=== PATIENT | female | born 1955 | race Caucasian/White ===

== ENCOUNTER 2016-07-12 13:43 | Outpatient (CLI) | payer OTHER | END 2016-07-12 13:44 | disposition home or self-care (01) | DX: D72.819 Decreased white blood cell count, unspecified (principal) ==

== ENCOUNTER 2016-08-09 09:29 | Outpatient (CLI) | payer OTHER | END 2016-08-09 09:30 | disposition home or self-care (01) | DX: Z12.31 Encounter for screening mammogram for malignant neoplasm of breast (principal); Z80.3 Family history of malignant neoplasm of breast ==

== ENCOUNTER 2017-07-07 08:00 | Outpatient (CLI) | payer OTHER ==
[2017-07-07 13:32] LABS: EOSINOPHILS # (AUTO) 0.1 10^3/uL (0.0-0.7); EOSINOPHILS % (AUTO) 4.1 %; HGB - HEMOGLOBIN 13.1 g/dL (12.0-16.0); LYMPHOCYTES # (AUTO) 1.4 10^3/uL (1.5-3.5); LYMPHOCYTES % (AUTO) 47.4 %; MEAN CORPUSCULAR HEMOGLOBIN 29.9 pg (27.0-31.0); MEAN CORPUSCULAR HGB CONC 33.8 g/dL (32.0-36.0); MEAN CORPUSCULAR VOLUME 88.3 fL (81.0-99.0); MEAN PLATELET VOLUME 8.8 fL (7.9-10.8); MONOCYTES # (AUTO) 0.4 10^3/uL (0.0-1.0); MONOCYTES % (AUTO) 13.1 %; NEUTROPHILS % (AUTO) 34.4 %; PLT - PLATELET COUNT 237 10^3/uL (130-450); RED BLOOD COUNT 4.37 10^6/uL (4.20-5.40); RED CELL DISTRIBUTION WIDTH 13.1 % (12.0-15.0); WHITE BLOOD COUNT 2.9 x10^3/uL (4.8-10.8)
[2017-07-07 13:41] LABS: ALBUMIN 4.4 g/dL (3.2-5.5); ALBUMIN/GLOBULIN RATIO 1.5 (1.0-2.2); BILIRUBIN,TOTAL 0.6 mg/dL (0.2-1.0); CALCIUM 8.9 mg/dL (8.5-10.3); CREATININE 0.8 mg/dL (0.4-1.0); TOTAL PROTEIN 7.3 g/dL (6.7-8.2)
== END 2017-07-07 08:01 | disposition home or self-care (01) ==
LOC: LAB.R 08:00
PROVIDERS: ATTEND Nurse Practitioner Primary Care
DX: Z00.00 Encounter for general adult medical examination without abnormal findings (principal); D72.819 Decreased white blood cell count, unspecified
CPT/HCPCS: 80053; 85025

== ENCOUNTER 2017-07-12 14:48 | Outpatient (CLI) | payer OTHER ==
--- NOTE | 2017-07-12 21:01 | XRAY Report ---
DATE OF SERVICE: 07/12/2017 TWO VIEW RIGHT THUMB: 07/12/2017 CLINICAL INDICATION: Pain. Frontal and lateral views of the right thumb demonstrate mild degenerative changes. There is no evidence of acute fracture or dislocation. No radiopaque foreign body is seen in the soft tissues. IMPRESSION: Mild osteoarthritis. No evidence of acute fracture. TD: 07/12/2017 21:57
== END 2017-07-12 14:49 | disposition home or self-care (01) ==
LOC: DI 14:48
PROVIDERS: ATTEND Nurse Practitioner Primary Care
DX: M19.041 Primary osteoarthritis, right hand (principal)
CPT/HCPCS: 73140

== ENCOUNTER 2018-04-24 09:28 | Outpatient (CLI) | payer MEDICARE, OTHER ==
--- NOTE | 2018-04-24 15:24 | Ultrasound Report ---
Reason: LIPOMA Procedure Date: 04/24/2018 Accession Number: [id number] / [id number] Procedure: US - Abdomen Limited CPT Code: FULL RESULT: EXAM: ABDOMEN ULTRASOUND LIMITED, RUQ EXAM DATE: 04/24/2018 10:09 AM. CLINICAL HISTORY: Lipoma. COMPARISON: None. TECHNIQUE: Real-time scanning was performed with static images obtained. FINDINGS: Focal grayscale and limited color Doppler ultrasound of the area of interest along the right abdominal wall was performed. A 0.7 x 0.3 x 1.2 cm ovoid superficial echogenic structure with echogenicity similar to the dermal layer is identified. The structure appears to respect tissue planes and is wider than tall with discrete well-demarcated borders. There is no surrounding hyperemia. Color Doppler reveals a singular feeding vessel. IMPRESSION: Benign-appearing nonspecific ovoid mass. Given echogenicity, the differential diagnosis would include entities such as a lymph node or lipoma. Given that the imaging appearance is nonspecific, other etiologies are not excluded. RADIA
== END 2018-04-24 09:29 | disposition home or self-care (01) ==
LOC: DI 09:28
PROVIDERS: ATTEND Internal Medicine
DX: D17.9 Benign lipomatous neoplasm, unspecified (principal); R19.00 Intra-abdominal and pelvic swelling, mass and lump, unspecified site
CPT/HCPCS: 76705

== ENCOUNTER 2018-07-13 08:00 | Outpatient (CLI) | payer MEDICARE, OTHER ==
[2018-07-13 14:58] LABS: BASOPHILS % (AUTO) 0.3 %; EOSINOPHILS # (AUTO) 0.1 10^3/uL (0.0-0.7); EOSINOPHILS % (AUTO) 4.3 %; HGB - HEMOGLOBIN 13.4 g/dL (12.0-16.0); LYMPHOCYTES # (AUTO) 1.3 10^3/uL (1.5-3.5); LYMPHOCYTES % (AUTO) 44.2 %; MEAN CORPUSCULAR HEMOGLOBIN 30.3 pg (27.0-31.0); MEAN CORPUSCULAR HGB CONC 33.9 g/dL (32.0-36.0); MEAN CORPUSCULAR VOLUME 89.3 fL (81.0-99.0); MEAN PLATELET VOLUME 8.6 fL (7.9-10.8); MONOCYTES # (AUTO) 0.4 10^3/uL (0.0-1.0); MONOCYTES % (AUTO) 12.6 %; NEUTROPHILS # (AUTO) 1.2 10^3/uL (1.5-6.6); NEUTROPHILS % (AUTO) 38.6 %; PLT - PLATELET COUNT 235 10^3/uL (130-450); RED BLOOD COUNT 4.41 10^6/uL (4.20-5.40); RED CELL DISTRIBUTION WIDTH 13.3 % (12.0-15.0)
[2018-07-13 15:08] LABS: ALBUMIN 4.1 g/dL (3.2-5.5); ALBUMIN/GLOBULIN RATIO 1.2 (1.0-2.2); BILIRUBIN,TOTAL 0.8 mg/dL (0.2-1.0); CALCIUM 9.1 mg/dL (8.5-10.3); CREATININE 0.8 mg/dL (0.4-1.0); TOTAL PROTEIN 7.5 g/dL (6.7-8.2)
[2018-07-14 11:12] LABS: HEPATITIS C ANTIBODY NON-REACTIVE (NON-REACTIVE)
== END 2018-07-13 23:59 | disposition home or self-care (01) ==
LOC: LAB.R 08:00
PROVIDERS: ATTEND Internal Medicine
DX: D72.819 Decreased white blood cell count, unspecified (principal); Z00.00 Encounter for general adult medical examination without abnormal findings
CPT/HCPCS: 80053; 85025; 86803

== ENCOUNTER 2018-08-04 09:22 | Outpatient (CLI) | payer MEDICARE, OTHER | END 2018-08-04 09:23 | disposition home or self-care (01) | LOC: DI 09:22 | PROVIDERS: ATTEND Internal Medicine | DX: R06.09 Other forms of dyspnea (principal); I42.9 Cardiomyopathy, unspecified; I34.0 Nonrheumatic mitral (valve) insufficiency | CPT/HCPCS: 93016; 93017; 93018; 93306; 93350; 93351 ==

== ENCOUNTER 2018-08-11 12:34 | Outpatient (CLI) | payer MEDICARE, OTHER ==
--- NOTE | 2018-08-04 11:34 | CARDIAC PROCEDURE NOTE ---
DATE OF SERVICE: 08/04/2018 Physician: Ronda Zaragoza MD, [facility] INDICATIONS: Dyspnea on exertion, Left bundle branch block. CARDIAC RISK FACTORS: Postmenopausal status, unknown/possible hypertension history. PROCEDURE: After signing informed consent, the patient underwent a Jones- protocol treadmill stress test along with Echo imaging at rest and at peak heart rate. Resting heart rate: 74. Peak heart rate: 156 (100% predicted maximum heart rate for age). Slow recovery of heart rate after exercise. Resting blood pressure: 146/80. Peak blood pressure: 170/85 and BP breanne further in early recovery to 200/80, then had normal recovery slowly. The patient exercised for 2 min and 48 seconds on a Jones-protocol treadmill stress test, She achieved a peak HR of 156 (100% PMHR) and 4.5 METS. Patient had no chest pain or shortness of breath. Oxygen saturation was 98% at peak on room air. RESTING EKG: Normal sinus rhythm, left atrial enlargement and right atrial enlargement, left bundle branch block. EKG AT [facility]: ST segments cannot be commented on because of the presence of left bundle branch block. SUMMARY: 1. Abnormal resting EKG. 2. Indeterminate ST and T waves by EKG criteria with exercise-stress because of the underlying left bundle branch block. 3. Abnormal heart rate and blood pressure response to exercise. 4. Echo images reported separately. 5. The preliminary Echo result shows LVH, severe global LV hypokinesis with severely depressed LVEF at rest. I spoke to Dr. Farias with all the above findings. The patient is to undergo a complete Echo with Doppler today, is to see Dr. Farias today after the Echo, and to start medications and management for cardiomyopathy. TD: 08/04/2018 11:14 MINOR
--- NOTE | 2018-08-11 13:47 | DEXA Report ---
Reason: POSTMENOPAUSAL Procedure Date: 08/11/2018 Accession Number: [id number] / [id number] Procedure: DEX - Dexa Spine and/or Hip CPT Code: FULL RESULT: EXAM: Dexa Spine and/or Hip DATE: 08/11/2018 1:04 PM CLINICAL HISTORY: POSTMENOPAUSAL. History of osteopenia. TECHNIQUE: Dual energy x-ray absorptiometry (DXA) was performed on a [employer] System. Regions measured are the AP Spine, femoral neck, and if needed forearm. COMPARISON: 07/27/2012 In accordance with the International Society for Clinical Densitometry (ISCD) guidelines, data from previous exams may be reanalyzed using current recommendations and techniques. This is done to allow a more accurate basis for comparison with the current study. FINDINGS: The data for the lumbar spine is as follows: BMD (g/cm/cm) T-SCORE Z-SCORE REGION L1 0.852 -2.3 -0.5 L2 0.919 -2.3 -0.5 L3 0.992 -1.7 0.1 L4 0.981 -1.8 0.0 TOTAL 0.941 -2.0 -0.2 NOTE: All evaluable vertebrae are used for classification The data for the hip is as follows: BMD (g/cm/cm) T-SCORE Z-SCORE REGION Neck 0.785 -1.8 -0.2 TOTAL 0.785 -1.8 -0.4 NOTE: The femoral neck or total proximal femur, whichever is lowest, is used for classification. IMPRESSION: THE WHO CLASSIFICATION BASED ON THE INTERNATIONAL REFERENCE STANDARD IS OSTEOPENIA. THE FRACTURE RISK IS INCREASED. RECOMMENDATION: Patients with diagnosis of osteoporosis or osteopenia should have regular bone mineral density assessment. For those eligible for Medicare, routine testing is allowed once every 2 years. Testing frequency can be increased for patients who have rapidly progressing disease or for those who are receiving medical therapy to restore bone mass. COMMENT: World Health Organization (WHO) definitions for osteoporosis and osteopenia: NORMAL BMD: T-score at -1.0 or higher, fracture risk is low OSTEOPENIA BMD: T-score between -1.0 and -2.5, fracture risk is increased. OSTEOPOROSIS BMD: T-score at -2.5 or lower, fracture risk is high. National Osteoporosis Foundation recommends: 1. Obtain adequate dietary calcium (at least 1200 mg per day) and vitamin D (400-800 international units per day). 2. Participate, as appropriate, in regular weightbearing and muscle-strengthening exercise. 3. Avoid tobacco use and reduce alcohol and caffeine intake. 4. For more detailed information see the website at www.NOF.org.
== END 2018-08-11 12:35 | disposition home or self-care (01) ==
LOC: DI 12:34
PROVIDERS: ATTEND Internal Medicine
DX: M85.89 Other specified disorders of bone density and structure, multiple sites (principal); Z78.0 Asymptomatic menopausal state
CPT/HCPCS: 77080

== ENCOUNTER 2018-08-11 12:35 | Outpatient (CLI) | payer MEDICARE, OTHER ==
--- NOTE | 2018-08-11 15:47 | Mammography Report ---
Reason: SCREENING MAMMO Procedure Date: 08/11/2018 Accession Number: [id number] / [id number] Procedure: NASIMA - Screening Mammo w/Malik CPT Code: FULL RESULT: EXAM: Screening Mammo w/Malik DATE: 08/11/2018 2:29 PM CLINICAL HISTORY: Patient with sister with breast cancer. History of breast biopsies. For routine screening TECHNIQUE: Bilateral CC and MLO views were obtained. COMPARISON: 08/09/2016, 12/10/2014, 10/18/2013 and 08/08/2012 FINDINGS: The breast tissue is extremely dense. No significant interval change. No suspicious masses, clustered microcalcifications, or new regions of architectural distortion are identified. Scattered benign-appearing calcifications and postsurgical change are stable. IMPRESSION: Benign findings RECOMMENDATION: Routine annual screening unless otherwise clinically indicated. BIRADS CATEGORY 2: Benign findings STANDARD QUALIFYING STATEMENTS: 1. This examination was not reviewed with the aid of Computer-Aided Detection (CAD). 2. A negative or benign imaging report should not preclude biopsy if clinically suspicious findings are present. 3. Dense breasts may obscure an underlying neoplasm. 4. This examination was reviewed with the aid of 3D breast imaging (tomosynthesis).
== END 2018-08-11 12:36 | disposition home or self-care (01) ==
LOC: DI 12:35
PROVIDERS: ATTEND Internal Medicine
DX: Z12.31 Encounter for screening mammogram for malignant neoplasm of breast (principal); Z78.0 Asymptomatic menopausal state
CPT/HCPCS: 77063; 77067

== ENCOUNTER 2018-08-17 11:25 | Outpatient (CLI) | payer MEDICARE, OTHER | END 2018-08-17 23:59 | disposition home or self-care (01) | LOC: LAB.R 11:25 | PROVIDERS: ATTEND Internal Medicine | DX: E55.9 Vitamin D deficiency, unspecified (principal) | CPT/HCPCS: 82306 ==

== ENCOUNTER 2018-09-21 08:41 | Outpatient (CLI) | payer MEDICARE, OTHER ==
[2018-09-21 09:02] LABS: CALCIUM 9.2 mg/dL (8.5-10.3); CREATININE 0.9 mg/dL (0.4-1.0)
== END 2018-09-21 08:42 | disposition home or self-care (01) ==
LOC: LAB 08:41
PROVIDERS: ATTEND Internal Medicine Cardiovascular Disease
DX: I50.9 Heart failure, unspecified (principal)
CPT/HCPCS: 36415; 80048

== ENCOUNTER 2018-11-22 12:55 | Outpatient (CLI) | payer MEDICARE, OTHER | END 2018-11-22 12:56 | disposition home or self-care (01) | LOC: DI 12:55 | PROVIDERS: ATTEND Internal Medicine Cardiovascular Disease | DX: I50.9 Heart failure, unspecified (principal); I35.1 Nonrheumatic aortic (valve) insufficiency | CPT/HCPCS: 93306 ==

== ENCOUNTER 2019-04-02 09:21 | Outpatient (CLI) | payer MEDICARE, OTHER ==
--- NOTE | 2019-04-03 14:53 | XRAY Report ---
Reason: TOE PAIN,LEFT Procedure Date: 04/02/2019 Accession Number: [id number] / [id number] Procedure: XR - Toe(s) LT CPT Code: FULL RESULT: EXAM: LEFT TOE RADIOGRAPHY EXAM DATE: 04/02/2019 09:36 AM. CLINICAL HISTORY: Toe pain, left. COMPARISON: None. TECHNIQUE: 3 views. FINDINGS: Bones: Osteopenia. No discrete fracture or periosteal reaction. Osseous fusion at the 3rd, 4th, and 5th distal interphalangeal joints, likely congenital. Joints: Alignment anatomic. Minimal degenerative changes. Soft Tissues: Mild soft tissue swelling at the 4th digit. IMPRESSION: 1. Osteopenia. 2. No evidence of acute or subacute fracture. 3. Mild soft tissue swelling. RADIA
== END 2019-04-02 09:22 | disposition home or self-care (01) ==
LOC: DI 09:21
PROVIDERS: ATTEND Nurse Practitioner
DX: M85.872 Other specified disorders of bone density and structure, left ankle and foot (principal); M19.072 Primary osteoarthritis, left ankle and foot; R22.42 Localized swelling, mass and lump, left lower limb
CPT/HCPCS: 73660

== ENCOUNTER 2019-07-25 16:20 | Outpatient (CLI) | payer MEDICARE, OTHER ==
[2019-07-25 16:44] LABS: BASOPHILS % (AUTO) 1.1 %; EOSINOPHILS # (AUTO) 0.2 10^3/uL (0.0-0.7); HGB - HEMOGLOBIN 12.3 g/dL (12.0-16.0); LYMPHOCYTES # (AUTO) 1.4 10^3/uL (1.5-3.5); LYMPHOCYTES % (AUTO) 36.4 %; MEAN CORPUSCULAR HEMOGLOBIN 30.9 pg (27.0-31.0); MEAN CORPUSCULAR HGB CONC 33.4 g/dL (32.0-36.0); MEAN CORPUSCULAR VOLUME 92.5 fL (81.0-99.0); MEAN PLATELET VOLUME 9.5 fL (7.9-10.8); MONOCYTES # (AUTO) 0.4 10^3/uL (0.0-1.0); MONOCYTES % (AUTO) 11.3 %; NEUTROPHILS # (AUTO) 1.8 10^3/uL (1.5-6.6); NEUTROPHILS % (AUTO) 46.9 %; PLT - PLATELET COUNT 259 10^3/uL (130-450); RED BLOOD COUNT 3.98 10^6/uL (4.20-5.40); WHITE BLOOD COUNT 3.8 x10^3/uL (4.8-10.8)
[2019-07-25 17:02] LABS: ALBUMIN 4.5 g/dL (3.2-5.5); ALBUMIN/GLOBULIN RATIO 1.4 (1.0-2.2); BILIRUBIN,TOTAL 0.5 mg/dL (0.2-1.0); CALCIUM 9.2 mg/dL (8.5-10.3); CREATININE 0.9 mg/dL (0.4-1.0); TOTAL PROTEIN 7.7 g/dL (6.7-8.2)
[2019-07-25 17:32] LABS: THYROID STIMULATING HORMONE 3.52 uIU/mL (0.34-5.60)
[2019-07-25 17:34] LABS: FREE T4 (FREE THYROXINE) 0.77 ng/dL (0.58-1.64)
== END 2019-07-25 16:21 | disposition home or self-care (01) ==
LOC: LAB 16:20
PROVIDERS: ATTEND Family Medicine
DX: I10 Essential (primary) hypertension (principal); M85.80 Other specified disorders of bone density and structure, unspecified site; I42.9 Cardiomyopathy, unspecified; D72.819 Decreased white blood cell count, unspecified; D24.9 Benign neoplasm of unspecified breast
CPT/HCPCS: 36415; 80053; 84439; 84443; 84481; 85025

== ENCOUNTER 2020-09-18 14:02 | Outpatient (CLI) | payer MEDICARE, OTHER ==
[2020-09-18 14:31] LABS: ALBUMIN 4.8 g/dL (3.2-5.5); CREATININE 1.1 mg/dL (0.4-1.0); PHOSPHORUS 3.9 mg/dL (2.5-4.6); POTASSIUM 3.8 mmol/L (3.5-5.0)
== END 2020-09-18 14:03 | disposition home or self-care (01) ==
LOC: LAB 14:02
PROVIDERS: ATTEND Physician Assistant
DX: I42.9 Cardiomyopathy, unspecified (principal)
CPT/HCPCS: 36415; 80069

== ENCOUNTER 2020-11-20 07:49 | Outpatient (CLI) | payer MEDICARE, OTHER ==
--- NOTE | 2020-11-21 09:00 | Mammography Report ---
BILATERAL DIGITAL SCREENING MAMMOGRAM 3D/2D: 11/20/2020 CLINICAL: Family history of breast cancer. Routine screening. Comparison is made to exams dated: 08/21/2018 mammogram, 08/09/2016 mammogram, 12/10/2014 mammogram, mammogram, 08/08/2012 mammogram, and 07/26/2012 mammogram - [facility]. The tissue of both breasts is extremely dense, which lowers the sensitivity of mammography. There is an oval equal density asymmetry with an obscured and circumscribed margin in the right breas t anterior depth inferior region seen on the mediolateral oblique view only. No other significant masses, calcifications, or other findings are seen in either breast. IMPRESSION: INCOMPLETE: NEEDS ADDITIONAL IMAGING EVALUATION The oval equal density asymmetry in the right breast is indeterminate. Mediolateral and spot casandra ben views as well as additional views with possible ultrasound are recommended. This exam was interpreted at Station ID: [id number]. NOTE: For mammograms, a report in lay terms will be sent to the patient. Approximately 15% of breast malignancies will not be visualized mammographically. In the management of a palpable breast mass, a negative mammogram must not discourage biopsy of a clinically suspicious lesion. Electronically Signed By: Meir Kerr M.D. ddp/:11/20/2020 08:56:02 ACR BI-RADS Category 0: Incomplete 3340F PARENCHYMAL PATTERN: (VD) - The breast(s) demonstrate(s) extremely dense parenchyma, limiting the sen sitivity of mammography. BI-RADS CATEGORY: (0) - 0 Mammo and [place] [id number] Immediate follow-up LATERALITY: (B)
== END 2020-11-20 07:50 | disposition home or self-care (01) ==
LOC: DI 07:49
DX: Z12.31 Encounter for screening mammogram for malignant neoplasm of breast (principal); R92.8 Other abnormal and inconclusive findings on diagnostic imaging of breast; Z80.3 Family history of malignant neoplasm of breast

== ENCOUNTER 2020-12-22 09:30 | Outpatient (CLI) | payer MEDICARE, OTHER ==
--- NOTE | 2020-12-23 12:21 | Mammography Report ---
UNILATERAL RIGHT DIGITAL DIAGNOSTIC MAMMOGRAM 3D/2D: 12/22/2020 CLINICAL: Patient returns today to evaluate an architectural distortion in the right breast. Comparison is made to exams dated: 11/20/2020 mammogram, 08/21/2018 mammogram, 08/09/2016 mammogram, mammogram, 10/18/2013 mammogram, and 08/08/2012 mammogram - [facility]. The tissue of right breast is extremely dense, which lowers the sensitivity of mammography. Unchanged oval equal density asymmetry with circumscribed margin in the right breast anterior depth i nferior region seen on the mediolateral oblique view only. No other significant masses or calcificat ions are seen in the breast. IMPRESSION: INCOMPLETE: NEEDS ADDITIONAL IMAGING EVALUATION The oval equal density asymmetry in the right breast remains indeterminate. An ultrasound is recomme nded and is scheduled to immediately follow. This exam was interpreted at Station ID: [id number]. NOTE: For mammograms, a report in lay terms will be sent to the patient. Approximately 15% of breast malignancies will not be visualized mammographically. In the management of a palpable breast mass, a negative mammogram must not discourage biopsy of a clinically suspicious lesion. Electronically Signed By: Yoshi Soares M.D. jr/:12/22/2020 11:20:25 ACR BI-RADS Category 0: Incomplete 3340F PARENCHYMAL PATTERN: (VD) - The breast(s) demonstrate(s) extremely dense parenchyma, limiting the sen sitivity of mammography. BI-RADS CATEGORY: (0) - 0 Ultrasound [id number] Immediate follow-up LATERALITY: (B)
--- NOTE | 2020-12-23 12:21 | Ultrasound Report ---
LIMITED ULTRASOUND OF RIGHT BREAST AND AXILLA: 12/22/2020 CLINICAL: Patient returns today to evaluate a focal asymmetry in the right breast. Comparison is made to exams dated: 12/22/2020 mammogram, 11/20/2020 mammogram, 08/21/2018 mammogram, mammogram, 12/10/2014 mammogram, and 10/18/2013 mammogram - [facility]. Color flow and real-time ultrasound of the right breast 6 o'clock, 12 o'clock, retroareolar, and axil la regions were performed. Tanner scale images of the real-time examination were reviewed. There is an oval mass with a circumscribed and microlobulated margin in the right breast at 6 o'clock anterior depth. This oval mass is hypoechoic with a well-defined boundary and no posterior acoustic shadowing or enhancement. Color flow imaging demonstrates that there is no vascularity present. IMPRESSION: PROBABLY BENIGN The oval mass in the right breast most likely is a fibroadenoma and is probably benign. A follow-up ultrasound in 6 months is recommended. A follow-up ultrasound in 6 months is recommended to demonstrate stability. This exam was interpreted at Station ID: [id number]. Electronically Signed By: Yoshi Soares M.D., jr/fabricio:12/22/2020 11:21:22 Ultrasound BI-RADS: 3 Probably benign BI-RADS CATEGORY: (3) - 3 Ultrasound [id number] 6 month follow-up LATERALITY: (B)
== END 2020-12-22 09:31 | disposition home or self-care (01) ==
LOC: DI 09:30
PROVIDERS: ATTEND Family Medicine
DX: R92.8 Other abnormal and inconclusive findings on diagnostic imaging of breast (principal); N63.13 Unspecified lump in the right breast, lower outer quadrant

== ENCOUNTER 2021-05-04 06:47 | Outpatient (CLI) | payer MEDICARE, OTHER ==
--- NOTE | 2021-05-04 08:55 | Ultrasound Report ---
PROCEDURE: Abdomen Limited INDICATIONS: CYST TECHNIQUE: Real-time focused scanning was performed of the abdomen, with image documentation. COMPARISON: Abdomen ultrasound 04/24/2018 FINDINGS: Sonographic images of the right abdomen demonstrate a focus of increased echogenicity with in the subcutaneous tissues measuring 12 x 5 x 4 mm. IMPRESSION: Unchanged appearance of presumed lipoma as above. Reviewed by: Chelsey Costa MD on 05/04/2021 8:53 AM PST Approved by: Chelsey Costa MD on 05/04/2021 8:53 AM PST Station ID: [id number]
== END 2021-05-04 06:48 | disposition home or self-care (01) ==
LOC: DI 06:47
PROVIDERS: ATTEND Family Medicine
DX: L72.9 Follicular cyst of the skin and subcutaneous tissue, unspecified (principal)

== ENCOUNTER 2022-03-10 09:35 | Outpatient (CLI) | payer MEDICARE, OTHER ==
--- NOTE | 2022-03-11 12:54 | Mammography Report ---
BILATERAL DIGITAL SCREENING MAMMOGRAM 3D/2D: 03/10/2022 CLINICAL: Routine screening. Comparison is made to exams dated: 12/22/2020 mammogram, 11/20/2020 mammogram, 08/21/2018 mammogram, mammogram, 12/10/2014 mammogram, and 10/18/2013 mammogram - [facility]. Both breasts are extremely dense, which lowers the sensitivity of mammography (category d />75% glan dular tissue). There is an oval asymmetry with an obscured and indistinct margin in the right breast at 6 o'clock in the retroareolar region. This is seen in additional views. This is not significantly changed. Several benign coarse calcifications are seen scattered in each breast. No other significant masses, calcifications, or other findings are seen in either breast. IMPRESSION: INCOMPLETE: NEEDS ADDITIONAL IMAGING EVALUATION The oval asymmetry in the right breast is redemonstrated, most likely is a fibroadenoma and is not si gnificantly changed. An ultrasound is recommended to document stability. This was performed immediat grey following this exam. Based on Tyrer-Cuzick model (a risk assessment model), the patient's lifetime risk is 29.1% and her 1 0 year risk is 17.0%. If a patient has an elevated risk, a more comprehensive evaluation should be co nsidered and/or a referral to a genetic counselor. The [place] [employer], [place] [employer], and NCCN Guidelines advise the consideration of Breast MRI as an adjunct to screening mammo graphy in patients whose "Lifetime risk to develop breast cancer" is 20% or higher. This exam was interpreted at Station ID: [id number]. NOTE: For mammograms, a report in lay terms will be sent to the patient. Approximately 15% of breast malignancies will not be visualized mammographically. In the management of a palpable breast mass, a negative mammogram must not discourage biopsy of a clinically suspicious lesion. Electronically Signed By: Janessa yap/:03/10/2022 10:53:01 ACR BI-RADS Category 0: Incomplete 3340F PARENCHYMAL PATTERN: (VD) - The breast(s) demonstrate(s) extremely dense parenchyma, limiting the sen sitivity of mammography. BI-RADS CATEGORY: (0) - 0 Ultrasound [id number] Immediate follow-up LATERALITY: (B)
== END 2022-03-10 09:36 | disposition home or self-care (01) ==
LOC: DI 09:35
PROVIDERS: ATTEND Family Medicine
DX: Z12.31 Encounter for screening mammogram for malignant neoplasm of breast (principal); R92.8 Other abnormal and inconclusive findings on diagnostic imaging of breast

== ENCOUNTER 2022-03-10 10:08 | Outpatient (CLI) | payer MEDICARE, OTHER ==
--- NOTE | 2022-03-11 12:54 | Ultrasound Report ---
LIMITED ULTRASOUND OF RIGHT BREAST: 03/10/2022 CLINICAL: Patient returns for a 6 month follow up of the right breast. Comparison is made to exams dated: 03/10/2022 mammogram, 12/22/2020 ultrasound, 12/22/2020 mammogram, mammogram, 08/21/2018 mammogram, and 08/09/2016 mammogram - [facility]. Color flow ultrasound of the right breast 6 o'clock and 12 o'clock regions was performed. Tanner scale images of the real-time examination were reviewed. There is a 0.6 cm x 0.9 cm x 0.3 cm oval mass with a circumscribed margin in the right breast at 6 o' clock in the retroareolar region 2 cm from the nipple. This oval mass is hypoechoic but of mixed ech ogenicity with a well-defined boundary and fatty hilum. This abnormality is decreased in size and co rrelates with mammography findings. Color flow imaging demonstrates that there is no vascularity pre sent. There also is a 0.5 cm x 0.6 cm x 0.5 cm round cyst in the right breast at 12 o'clock anterior depth 3 cm from the nipple. This round cyst is anechoic. This abnormality is less internally echogenic, s table in size,and correlates with mammography findings. Color flow imaging demonstrates that there i s no vascularity present. IMPRESSION: PROBABLY BENIGN The 0.6 cm x 0.9 cm x 0.3 cm oval mass in the right breast at 6 o'clock in the retroareolar region mo st likely is a lymph node or a fibroadenoma and is probably benign. The 0.5 cm x 0.6 cm x 0.5 cm round cyst in the right breast at 12 o'clock anterior depth is stable si ze, has decreased in internal echogenicity, is now consistent with a simple cyst and is benign. A follow-up right ultrasound in 6 months is recommended to demonstrate stability of the 6:00 finding. Findings and recommendations were conveyed to the patient at time of exam. This exam was interpreted at Station ID: [id number]. Electronically Signed By: Janessa yap/:03/10/2022 11:10:59 Ultrasound BI-RADS: 3 Probably benign BI-RADS CATEGORY: (3) - 3 Ultrasound [id number] 6 month follow-up LATERALITY: (R)
== END 2022-03-10 10:09 | disposition home or self-care (01) ==
LOC: DI 10:08
PROVIDERS: ATTEND Family Medicine
DX: N63.15 Unspecified lump in the right breast, overlapping quadrants (principal); N60.01 Solitary cyst of right breast

== ENCOUNTER 2022-06-09 09:44 | Outpatient (CLI) | payer MEDICARE, OTHER ==
[2022-06-09 09:59] LABS: BASOPHILS % (AUTO) 1.1 %; EOSINOPHILS # (AUTO) 0.2 10^3/uL (0.0-0.7); EOSINOPHILS % (AUTO) 4.1 %; HCT - HEMATOCRIT 37.6 % (37.0-47.0); HGB - HEMOGLOBIN 12.3 g/dL (12.0-16.0); LYMPHOCYTES # (AUTO) 1.4 10^3/uL (1.5-3.5); LYMPHOCYTES % (AUTO) 37.2 %; MEAN CORPUSCULAR HEMOGLOBIN 29.6 pg (27.0-31.0); MEAN CORPUSCULAR HGB CONC 32.7 g/dL (32.0-36.0); MEAN CORPUSCULAR VOLUME 90.4 fL (81.0-99.0); MEAN PLATELET VOLUME 9.3 fL (7.9-10.8); MONOCYTES # (AUTO) 0.4 10^3/uL (0.0-1.0); MONOCYTES % (AUTO) 11.6 %; NEUTROPHILS # (AUTO) 1.7 10^3/uL (1.5-6.6); NEUTROPHILS % (AUTO) 45.7 %; PLT - PLATELET COUNT 222 10^3/uL (130-450); RED BLOOD COUNT 4.16 10^6/uL (4.20-5.40); RED CELL DISTRIBUTION WIDTH 12.1 % (12.0-15.0); WHITE BLOOD COUNT 3.6 x10^3/uL (4.8-10.8)
[2022-06-09 10:21] LABS: ALBUMIN 4.2 g/dL (3.2-5.5); ALBUMIN/GLOBULIN RATIO 1.3 (1.0-2.2); ALKALINE PHOSPHATASE 41 IU/L (42-121); ALT ALANINE AMINOTRANSFERASE 20 IU/L (10-60); AST ASPARTATE AMINOTRANSFERASE 25 IU/L (10-42); BILIRUBIN,TOTAL 0.6 mg/dL (0.2-1.0); BUN - BLOOD UREA NITROGEN 15 mg/dL (6-20); CALCIUM 9.5 mg/dL (8.5-10.3); CARBON DIOXIDE - CO2 31 mmol/L (21-32); CHLORIDE 100 mmol/L (101-111); CHOL/HDL RATIO 3.1 (<4.4); CHOLESTEROL 151 mg/dL; GFR - MDRD 55 (>89); GLUCOSE 98 mg/dL (70-100); HDL CHOLESTEROL 49 mg/dL; LDL CHOLESTEROL,CALCULATED 90 mg/dL; LDL/HDL RATIO 1.8 (<4.4); POTASSIUM 4.3 mmol/L (3.5-5.0); SODIUM 137 mmol/L (135-145); TOTAL PROTEIN 7.4 g/dL (6.7-8.2); TRIGLYCERIDES 62 mg/dL; VLDL CHOLESTEROL 12 mg/dL
[2022-06-09 10:29] LABS: THYROID STIMULATING HORMONE 3.86 uIU/mL (0.34-5.60)
== END 2022-06-09 09:45 | disposition home or self-care (01) ==
LOC: LAB 09:44
PROVIDERS: ATTEND Family Medicine
DX: I42.9 Cardiomyopathy, unspecified (principal); M54.16 Radiculopathy, lumbar region; D24.9 Benign neoplasm of unspecified breast; K59.09 Other constipation
CPT/HCPCS: 36415; 80053; 80061; 83721; 84443; 85025

== ENCOUNTER 2022-07-19 09:50 | Outpatient (CLI) | payer MEDICARE, OTHER ==
--- NOTE | 2022-07-19 15:13 | DEXA Report ---
PROCEDURE: Dexa Spine and/or Hip INDICATIONS: POST MENOPAUSAL TECHNIQUE: Dual energy x-ray absorptiometry (DXA) was performed on a [employer] System. Regions measur ed are the AP Spine, femoral neck, and if needed forearm. COMPARISON: DEXA 08/11/2018 FINDINGS: Lumbar Spine: Bone Mineral Density 0.950 g/cm/cm,T score -1.9, compared to -2.0 Left Femoral Neck: Bone Mineral Density 0.708 g/cm/cm, T score -2.4, compared to -1.8 Left Hip: Bone Mineral Density 0.778 g/cm/cm,T score -1.8, unchanged (T score greater or equal to -1.0: NORMAL) (T score from -1.1 to -2.4: OSTEOPENIA) (T score less than or equal to -2.5 to: OSTEOPOROSIS) Impression: Severe osteopenia in the left femoral neck, progressive. Patients with diagnosis of osteoporosis or osteopenia should have regular bone mineral density assess ment. For those eligible for Medicare, routine testing is allowed once every 2 years. Testing frequ ency can be increased for patients who have rapidly progressing disease or for those who are receivin g medical therapy to restore bone mass. Reviewed by: Chelsey Costa MD on 07/19/2022 3:11 PM PST Approved by: Chelsey Costa MD on 07/19/2022 3:11 PM PST Station ID: [id number]
== END 2022-07-19 09:51 | disposition home or self-care (01) ==
LOC: DI 09:50
PROVIDERS: ATTEND Family Medicine
DX: M85.89 Other specified disorders of bone density and structure, multiple sites (principal); Z78.0 Asymptomatic menopausal state

== ENCOUNTER 2022-10-05 09:36 | Outpatient (CLI) | payer MEDICARE, OTHER ==
--- NOTE | 2022-10-06 09:33 | Ultrasound Report ---
LIMITED ULTRASOUND OF RIGHT BREAST: 10/05/2022 CLINICAL: Patient returns for sonographic evaluation of right breast mass. Comparison is made to exams dated: 03/10/2022 ultrasound, 03/10/2022 mammogram, 12/22/2020 ultrasound, 12/22/2020 mammogram, 11/20/2020 mammogram, and 08/21/2018 mammogram - [facility]. Color flow ultrasound of the right breast 6 o'clock and 12 o'clock regions was performed. Tanner scale images of the real-time examination were reviewed. There is a 1.2 cm x 0.7 cm x 0.3 cm oval cystic structure with an irregular margin in the right breas t at 6 o'clock anterior depth 3 cm from the nipple with the long axis parallel to the skin. This ova l cyst is hypoechoic with internal echoes and no posterior acoustic shadowing or enhancement. This a bnormality has slightly elongated, but otherwise not significantly changed. Color flow imaging demon strates that there is no vascularity present. IMPRESSION: PROBABLY BENIGN The 1.2 cm x 0.7 cm x 0.3 cm oval cyst in the right breast has a differential diagnosis of a complica mona/ proteinaceous cyst, debris-filled duct segment, less likely fibroadenoma, but is probably benign . A follow-up right ultrasound in 6 months is recommended to demonstrate stability. The patient will be due for bilateral mammograms at that same visit. Findings and recommendations were conveyed to the patient at time of exam. This exam was interpreted at Station ID: [id number]. Electronically Signed By: Janessa yap/:10/05/2022 10:12:29 Ultrasound BI-RADS: 3 Probably benign BI-RADS CATEGORY: (3) - 3 Ultrasound [id number] 6 month follow-up LATERALITY: (R)
== END 2022-10-05 09:37 | disposition home or self-care (01) ==
LOC: DI 09:36
PROVIDERS: ATTEND Family Medicine
DX: N60.01 Solitary cyst of right breast (principal)

== ENCOUNTER 2022-10-28 08:00 | Outpatient (CLI) | payer MEDICARE, OTHER ==
[2022-10-29 13:00] LABS: BILIRUBIN,URINE NEGATIVE (NEGATIVE); GLUCOSE, URINE (UA) NEGATIVE (NEGATIVE); KETONES,URINE (UA) NEGATIVE (NEGATIVE); LEUKOCYTE ESTERASE, URINE TRACE (NEGATIVE); NITRITE,URINE NEGATIVE (NEGATIVE); OCCULT BLOOD,URINE SMALL (NEGATIVE); PROTEIN,URINE NEGATIVE (NEGATIVE); UROBILINOGEN,URINE 0.2 (NORMAL) E.U./dL (NORMAL)
[2022-10-29 13:04] LABS: CLARITY,URINE CLEAR (CLEAR)
[2022-10-29 13:40] LABS: BACTERIA,URINE Rare /HPF (None Seen); RBC,URINE 0-5 /HPF (0-5); SQUAMOUS EPITHELIAL CELL,UR RARE Squamous (<= Few)
== END 2022-10-28 23:59 | disposition home or self-care (01) ==
LOC: LAB.WC 08:00
PROVIDERS: ATTEND Obstetrics & Gynecology
DX: N39.3 Stress incontinence (female) (male) (principal)
CPT/HCPCS: 81001; 87086

== ENCOUNTER 2023-05-13 12:27 | Outpatient (CLI) | payer MEDICARE, OTHER ==
--- NOTE | 2023-05-16 12:25 | Ultrasound Report ---
LIMITED ULTRASOUND OF RIGHT BREAST: 05/13/2023 CLINICAL: 6 month follow-up. Comparison is made to exams dated: 10/05/2022 ultrasound, 03/10/2022 ultrasound, 03/10/2022 mammogram, 12/22/2020 ultrasound, and 12/22/2020 mammogram - [facility]. Color flow ultrasound of the right breast 6 o'clock and 12 o'clock regions was performed. Tanner scale images of the real-time examination were reviewed. There is a 1.1 cm x 0.5 cm x 0.3 cm oval cyst with an irregular internal wall in the right breast at 6 o'clock anterior depth 3 cm from the nipple with the long axis parallel to the skin. This oval cys t is hypoechoic with internal echoes and no posterior acoustic shadowing or enhancement. This abnorm ality is not significantly changed. Color flow imaging demonstrates that there is no vascularity pre sent. There also is a 0.6 cm x 0.5 cm x 0.5 cm oval cyst in the right breast at 12 o'clock anterior depth 2 cm from the nipple. This oval cyst is hypoechoic. This abnormality is not significantly changed an d correlates with mammography findings. Color flow imaging demonstrates that there is no vascularity present. IMPRESSION: PROBABLY BENIGN The 1.1 cm x 0.5 cm x 0.3 cm oval cyst in the right breast at 6 o'clock anterior depth has a differen tial diagnosis of a complicated cyst, debris-filled dilated duct and is probably benign. The 0.6 cm x 0.5 cm x 0.5 cm oval cyst in the right breast at 12 o'clock anterior depth is consistent with a complicated cyst and is probably benign. A follow-up right mammogram and an ultrasound in 6 months is recommended to demonstrate continued sta bility. Findings and recommendations were conveyed to the patient during today's evaluation. This exam was interpreted at Station ID: [id number]. Electronically Signed By: Gurdeep Layne M.D. aty/:05/13/2023 13:59:04 Ultrasound BI-RADS: 3 Probably benign BI-RADS CATEGORY: (3) - 3 Mammo and US [id number] 6 month follow-up LATERALITY: (R)
--- NOTE | 2023-05-16 12:25 | Mammography Report ---
BILATERAL DIGITAL DIAGNOSTIC MAMMOGRAM 3D/2D: 05/13/2023 CLINICAL: Short term follow up of the right breast, due for bilateral imaging. Comparison is made to exams dated: 03/10/2022 mammogram, 12/22/2020 mammogram, 11/20/2020 mammogram, mammogram, and 08/09/2016 mammogram - [facility]. Both breasts are extremely dense, which lowers the sensitivity of mammography (category d />75% gland ular tissue). There is an oval asymmetry with an obscured and indistinct margin in the right breast at 6 o'clock in the retroareolar region. This is not significantly changed. There also is an oval equal density focal asymmetry with an obscured margin in the right breast at 12 o'clock anterior depth. This is not significantly changed and correlates with prior ultrasound find ings. No other new significant masses, calcifications, or other findings are seen in either breast. IMPRESSION: INCOMPLETE: NEEDS ADDITIONAL IMAGING EVALUATION The oval asymmetry in the right breast at 6 o'clock in the retroareolar region is indeterminate. An ultrasound is recommended for further evaluation and is scheduled to immediately follow this examina tion. The oval equal density focal asymmetry in the right breast at 12 o'clock anterior depth most likely i s a cyst and is indeterminate. An ultrasound is recommended for further evaluation and is scheduled to immediately follow this examination. Based on Tyrer-Cuzick model (a risk assessment model), the patient's lifetime risk is 26.4% and her 1 0 year risk is 17.4%. If a patient has an elevated risk, a more comprehensive evaluation should be co nsidered and/or a referral to a genetic counselor. The [employer] [employer], [employer], and NCCN Guidelines advise the consideration of Breast MRI as an adjunct to screening mammo graphy in patients whose "Lifetime risk to develop breast cancer" is 20% or higher. This exam was interpreted at Station ID: [id number]. NOTE: For mammograms, a report in lay terms will be sent to the patient. Approximately 15% of breast malignancies will not be visualized mammographically. In the management of a palpable breast mass, a negative mammogram must not discourage biopsy of a clinically suspicious lesion. Electronically Signed By: Gurdeep Layne M.D. aty/:05/13/2023 13:54:29 ACR BI-RADS Category 0: Incomplete 3340F PARENCHYMAL PATTERN: (VD) - The breast(s) demonstrate(s) extremely dense parenchyma, limiting the sen sitivity of mammography. BI-RADS CATEGORY: (0) - 0 Ultrasound [id number] Immediate follow-up LATERALITY: (R)
== END 2023-05-13 12:28 | disposition home or self-care (01) ==
LOC: DI 12:27
PROVIDERS: ATTEND Family Medicine
DX: R92.8 Other abnormal and inconclusive findings on diagnostic imaging of breast (principal); N60.01 Solitary cyst of right breast; R92.30 Dense breasts, unspecified

== ENCOUNTER 2023-07-12 11:06 | Outpatient (CLI) | payer MEDICARE, OTHER ==
[2023-07-12 11:25] LABS: BASOPHILS # (AUTO) 0.1 10^3/uL (0.0-0.1); BASOPHILS % (AUTO) 1.2 %; EOSINOPHILS # (AUTO) 0.3 10^3/uL (0.0-0.7); EOSINOPHILS % (AUTO) 5.3 %; HCT - HEMATOCRIT 39.5 % (37.0-47.0); HGB - HEMOGLOBIN 13.1 g/dL (12.0-16.0); LYMPHOCYTES # (AUTO) 1.9 10^3/uL (1.5-3.5); LYMPHOCYTES % (AUTO) 37.9 %; MEAN CORPUSCULAR HEMOGLOBIN 30.3 pg (27.0-31.0); MEAN CORPUSCULAR HGB CONC 33.2 g/dL (32.0-36.0); MEAN CORPUSCULAR VOLUME 91.2 fL (81.0-99.0); MEAN PLATELET VOLUME 9.5 fL (7.9-10.8); MONOCYTES # (AUTO) 0.6 10^3/uL (0.0-1.0); MONOCYTES % (AUTO) 12.2 %; NEUTROPHILS # (AUTO) 2.2 10^3/uL (1.5-6.6); NEUTROPHILS % (AUTO) 43.2 %; PLT - PLATELET COUNT 281 10^3/uL (130-450); RED BLOOD COUNT 4.33 10^6/uL (4.20-5.40); WHITE BLOOD COUNT 5.1 x10^3/uL (4.8-10.8)
[2023-07-12 12:35] LABS: ALBUMIN 4.6 g/dL (3.2-5.5); ALBUMIN/GLOBULIN RATIO 1.4 (1.0-2.2); ALKALINE PHOSPHATASE 49 IU/L (42-121); ALT ALANINE AMINOTRANSFERASE 17 IU/L (10-60); AST ASPARTATE AMINOTRANSFERASE 22 IU/L (10-42); BILIRUBIN,TOTAL 0.5 mg/dL (0.2-1.0); BUN - BLOOD UREA NITROGEN 21 mg/dL (6-20); CALCIUM 9.6 mg/dL (8.5-10.3); CARBON DIOXIDE - CO2 32 mmol/L (21-32); CHLORIDE 100 mmol/L (101-111); CRP - C-REACTIVE PROTEIN < 0.5 mg/dL (<0.5); GFR - MDRD 55 (>89); GLUCOSE 87 mg/dL (74-104); POTASSIUM 4.1 mmol/L (3.5-4.5); SODIUM 139 mmol/L (135-145); TOTAL PROTEIN 7.8 g/dL (6.4-8.9)
[2023-07-12 19:47] LABS: THYROID STIMULATING HORMONE 4.55 uIU/mL (0.34-5.60)
[2023-07-14 15:09] LABS: ANTINUCLEAR ANTIBODIES IFA Negative (.); PROTEIN TOTAL 7.7 g/dL (6.0-8.5)
[2023-07-16 04:08] LABS: TRYPTASE 5.9 ug/L (2.2-13.2)
== END 2023-07-12 11:07 | disposition home or self-care (01) ==
LOC: LAB 11:06
PROVIDERS: ATTEND Internal Medicine
DX: L50.3 Dermatographic urticaria (principal)
CPT/HCPCS: 36415; 80053; 81599; 82784; 82785; 83520; 84155; 84165; 84439; 84443; 85025; 85651; 86038; 86140; 86334

== ENCOUNTER 2023-11-24 10:21 | Outpatient (CLI) | payer MEDICARE, OTHER | END 2023-11-24 10:22 | disposition home or self-care (01) | LOC: LAB 10:21 | PROVIDERS: ATTEND Allergy & Immunology | DX: E03.9 Hypothyroidism, unspecified (principal) | CPT/HCPCS: 36415; 84443 ==

== ENCOUNTER 2023-12-09 09:32 | Outpatient (CLI) | payer MEDICARE, OTHER ==
--- NOTE | 2023-12-12 10:44 | Mammography Report ---
UNILATERAL RIGHT DIGITAL DIAGNOSTIC MAMMOGRAM 3D/2D WITH EXAGGERATED CC: 12/09/2023 CLINICAL: Patient returns for a 6 month follow up of the right breast. Comparison is made to exams dated: 05/13/2023 mammogram, 10/05/2022 ultrasound, 05/13/2023 ultrasound , 03/10/2022 ultrasound, 03/10/2022 mammogram, and 12/22/2020 mammogram - [facility]. The right breast is extremely dense, which lowers the sensitivity of mammography (category d />75% gl andular tissue). There is a focal asymmetry in the right breast at 6 o'clock in the retroareolar region. This is not significantly changed. There also is a focal asymmetry in the right breast at 12 o'clock anterior depth. This is not signif icantly changed. No other significant masses or calcifications are seen in the breast. IMPRESSION: INCOMPLETE: NEEDS ADDITIONAL IMAGING EVALUATION The focal asymmetry in the right breast at 6 o'clock in the retroareolar region is indeterminate. An ultrasound is recommended. The focal asymmetry in the right breast at 12 o'clock anterior depth is indeterminate. An ultrasound is recommended. Patient could not stay for ultrasound today and will be rescheduled at a future date. Based on Tyrer-Cuzick model (a risk assessment model), the patient's lifetime risk is 26.4% and her 1 0 year risk is 17.4%. If a patient has an elevated risk, a more comprehensive evaluation should be co nsidered and/or a referral to a genetic counselor. The [employer], [employer], and NCCN Guidelines advise the consideration of Breast MRI as an adjunct to screening mammo graphy in patients whose "Lifetime risk to develop breast cancer" is 20% or higher. This exam was interpreted at Station ID: [id number]. NOTE: For mammograms, a report in lay terms will be sent to the patient. Approximately 15% of breast malignancies will not be visualized mammographically. In the management of a palpable breast mass, a negative mammogram must not discourage biopsy of a clinically suspicious lesion. Electronically Signed By: Bradly Richard M.D. lc/:12/09/2023 10:33:49 ACR BI-RADS Category 0: Incomplete 3340F PARENCHYMAL PATTERN: (VD) - The breast(s) demonstrate(s) extremely dense parenchyma, limiting the sen sitivity of mammography. BI-RADS CATEGORY: (0) - 0 Ultrasound [id number] Immediate follow-up LATERALITY: (B)
== END 2023-12-09 09:33 | disposition home or self-care (01) ==
LOC: DI 09:32
PROVIDERS: ATTEND Nurse Practitioner
DX: R92.8 Other abnormal and inconclusive findings on diagnostic imaging of breast (principal)

== ENCOUNTER 2023-12-23 12:49 | Outpatient (CLI) | payer MEDICARE, OTHER ==
--- NOTE | 2023-12-30 11:54 | Ultrasound Report ---
LIMITED ULTRASOUND OF RIGHT BREAST: 12/23/2023 CLINICAL: 6 month follow-up of cysts. Comparison is made to exams dated: 12/09/2023 mammogram, 05/13/2023 ultrasound, 05/13/2023 mammogram, 10/05/2022 ultrasound, 03/10/2022 ultrasound, and 03/10/2022 mammogram - [facility]. Color flow and real-time ultrasound of the right breast 6 o'clock and 12 o'clock regions were perform ed. Tanner scale images of the real-time examination were reviewed. There is a 0.9 cm x 0.6 cm x 0.3 cm oval cyst with an irregular internal wall in the right breast at 6 o'clock anterior depth 3 cm from the nipple with the long axis parallel to the skin. This oval cys t is hypoechoic with internal echoes and no posterior acoustic shadowing or enhancement. This abnorm ality is not significantly changed. Color flow imaging demonstrates that there is no vascularity pre sent. There also is a 0.6 cm x 0.5 cm x 0.5 cm oval cyst in the right breast at 12 o'clock anterior depth 3 cm from the nipple. This oval cyst is hypoechoic. This abnormality is not significantly changed an d correlates with mammography findings. Color flow imaging demonstrates that there is no vascularity present. IMPRESSION: PROBABLY BENIGN The 0.9 cm x 0.6 cm x 0.3 cm oval cyst in the right breast at 6 o'clock anterior depth has a differen tial diagnosis of a complicated cyst and is probably benign. The 0.6 cm x 0.5 cm x 0.5 cm oval cyst in the right breast at 12 o'clock anterior depth is consistent with a complicated cyst and is probably benign. A follow-up bilateral mammogram and a right ultrasound in 12 months is recommended to document long t erm stability. Findings and recommendations were conveyed to the patient during today's evaluation. This exam was interpreted at Station ID: [id number]. Electronically Signed By: Gurdeep Layne M.D. aty/:12/29/2023 14:30:26 Ultrasound BI-RADS: 3 Probably benign BI-RADS CATEGORY: (3) - 3 Mammo and [place] [id number] 12 month follow-up LATERALITY: (B)
== END 2023-12-23 12:50 | disposition home or self-care (01) ==
LOC: DI 12:49
PROVIDERS: ATTEND Nurse Practitioner
DX: N60.11 Diffuse cystic mastopathy of right breast (principal)